=== PATIENT | male | born 1970 | race Caucasian/White ===

== ENCOUNTER 2018-07-12 05:33 | Day surgery (SDC) | payer OTHER ==
[~2018-07-12] VITALS: Ht 190.5 cm; Wt 167.8 kg
--- NOTE | ~2018-07-12 | O ---
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 PROCEDURE PERFORMED: Right index finger distal phalanx amputation. SURGEON: Devora Lewis MD ANESTHESIA: General mask anesthesia. ESTIMATED BLOOD LOSS: 1 mL. TOURNIQUET TIME: 20 minutes. SPECIMEN: Sent to pathology and microbiology. COMPLICATIONS: None. CONDITION: Stable. DISPOSITION: Recovery room. INDICATIONS: The patient is a 47-year-old male with the above-mentioned diagnosis. He elects for operative treatment. The risks, benefits, alternatives and complications were discussed including but not limited to wound healing problems, inability to resolve the infection, stiffness, phantom pain. Informed consent was obtained. The correct extremity was identified and labeled by myself after verbal confirmation of the patient as well as visual confirmation and signed informed consent. DESCRIPTION OF PROCEDURE: The patient was brought back to the operating room and placed on the operating table in the supine position. He did not receive preoperative antibiotics. He did receive antibiotics after the tourniquet was deflated and cultures were taken. The right extremity was sterilely prepped and draped in usual fashion. Final timeout was taken to verify correct patient, operative procedure, operative site, all concurred. The arm was elevated, exsanguinated only in the forearm and the tourniquet was inflated. The entire [address] [address] OPERATIVE REPORT Name: JERALDPARTH Delmis Room #: 150-6 [facility]#: [id number] Admission: 07/12/18 Attend Phys: Devora Lewis, Discharge: Date of : 66 Report #: [id number] procedure was done with a 3.5 loupe magnification. Next, incision was made just proximal to the wound. The distal phalanx was removed in its entirety. 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 Once this was done, the wound was thoroughly irrigated. I attempted to reapproximate the edges; however, there was a moderate amount of tension, and so a few millimeters of the distal portion of the P2 were removed in order to allow for tension-free repair. The wound was then repaired using 4-0 nylon suture. Careful attention placed to removing any nail bed tissue as well as cutting the sac any nerve endings to avoid postop sensitivity. The tourniquet was deflated. The flaps were nice and pink. A digital nerve block was done volarly with approximately 5 mL of 0.25% Marcaine. He was placed in a bulky dressing with Xeroform and sterile gauze. All fingers were pink with brisk capillary refill at the conclusion of the case after deflation of tourniquet. All sponge and needle counts were correct. The patient was transferred to postoperative recovery room in stable condition. By: [id number] Devora Lewis MD /nt
[~2018-07-12 05:33] MED LIST: COLACE100 MG PO; ELIQUIS5 MG PO; IBUPROFEN 200200 M1 PO; K-DUR 20 MEQ T20 MEQ PO; LASIX 40 MG TAB40 M2 PO; LEVAQUIN 750 M750 MG PO; LISINOPRIL20 MG PO; MIRALAX17 GM PO; NORCO 7.5-3251 EACH PO; TOPROL XL100 MG PO; UNICOMPLEX M TA1 TA1 PO
[2018-07-12 07:15] LABS: CALCIUM 8.9 mg/dL (8.5-10.1); CREATININE 1.1 mg/dL (0.7-1.3); POTASSIUM 4.7 mmol/L (3.5-5.1)
[2018-07-12 08:09] VITALS: BP 117/69
--- NOTE | 2018-07-16 16:07 | PATH ---
[facility] [place] [address] PATHOLOGY RPT PROCEDURE Name: ANJUM MUNOZ Room #: DEP [facility] [place] [place] M.R.#: [id number] Admission: 07/12/18 Date of : 66 Discharge: 07/12/18 Report #: [id number] Path Case #: [id number] [facility] Accession Number: [id number] . 01 Material submitted: . SEGMENT,RIGHT INDEX FINGER . 01 Clinical history: . Right index finger open snake bite osteomyelitis . 02 Diagnosis: Finger, segment right index finger, amputation: - Acute osteomyelitis associated with remodeling changes, history of snake bite. - Overlying skin showing ulceration. - Bone margin viable. (IUV:filer repairer; 07/16/2018) MBR/07/16/2018 . 02 Electronically signed: . Marya Perez MD, Pathologist NPI- [id number] . 01 Gross description: . Received in formalin labeled "Anjum Munoz, segment right index finger," is a partial digit amputation specimen measuring 2.5 x 1.7 x 1.5 cm in greatest dimensions. The bone margin is smooth and concave in appearance, consistent with disarticulation. The nail plate is slightly thickened, irregularly contoured and pale lee in appearance. The palmar medial aspect epidermal surface displays a possibly ulcerative lesion measuring 0.3 x 0.3 cm that extends to within 0.4 cm of the nearest soft tissue margin. The bone and soft tissue margins are inked black. A full-thickness cross-section is submitted in cassette A1, following decalcification. Additional sales representative trainee sections of the epidermal surface possible ulcerative lesion are submitted in cassette A2. (DAC; 07/15/2018) XDC/XDC . 02 Pathologist provided ICD-10: M86.18, L98.499 . 02 CPT . 796222, 262662 Specimen Comment: A courtesy copy of this report has been sent to Specimen Comment: [phone], . Specimen Comment: Report sent to and Performed at: [address] [place] [address] PATHOLOGY RPT PROCEDURE Name: ANJUM MUNOZ Room #: DEP [facility] [place] Bessie#: [id number] Admission: 07/12/18 Date of : 66 Discharge: 07/12/18 Report #: [id number] Path Case #: [id number] [place] [id number] [facility] [address], [place], [place] [id number] MD Zana Desai MD Phone: [phone] Performed at: [address] [id number] MD Marya Perez MD Phone: [phone]
== END 2018-07-12 08:30 | disposition home or self-care (01) ==
LOC: OR 05:33 → TBA 05:33 → OR 08:30
PROVIDERS: Orthopaedic Surgery Hand Surgery
DX: M86.141 Other acute osteomyelitis, right hand (principal); L98.499 Non-pressure chronic ulcer of skin of other sites with unspecified severity; I10 Essential (primary) hypertension; E78.5 Hyperlipidemia, unspecified; J45.909 Unspecified asthma, uncomplicated; F17.220 Nicotine dependence, chewing tobacco, uncomplicated; Z98.890 Other specified postprocedural states; Z79.899 Other long term (current) drug therapy
CPT/HCPCS: 50010; 50101; 62110; 62900; 70005